=== PATIENT | female | born 1985 | race Caucasian/White ===

== ENCOUNTER 2018-01-13 02:04 | Emergency (ER) | payer BC, OTHER ==
[~2018-01-13] VITALS: Ht 160 cm; Wt 62.0 kg
[~2018-01-13 02:04] MED LIST: BUPR-197 PO; LAMO150 PO; PERC5TAB12 PO; PREN0.01 PO; ZOLP10TA3 PO
[2018-01-13 02:15] VITALS: BP 118/75; PULSE 98; RESP 12; TEMP 98.5; O2SAT 100
--- NOTE | 2018-01-13 02:33 | PD ---
HPI Chief Complaint: Allergic/Adverse Reaction Time Seen by Provider: 02:32 Travel History International Travel<30 days: No Contact w/Intl Traveler<30days: No Traveled to known affect area: No History of Present Illness HPI 32-year-old female with history of bipolar disorder presents emergency department for evaluation under Kulkarni act. Patient states that she took her Ambien and anxiolytic medication prior to bed tonight. She states that she does not recall doing anything out of the normal, however she did send text messages to a boyfriend or ex- about wanting to commit suicide. Patient states she absolutely does not want to hurt herself or anybody else. She tells me she does not recall sending a text messages. Denies illicit drug use. States she does drink alcohol occasionally. She has been taking her medication as prescribed. She has no other symptoms to report. [facility] Past Medical History Anxiety: Yes ?: Not Past Surgical History Section: Yes Gynecologic Surgery: Yes (2 c/section) Social History Alcohol Use: No Tobacco Use: Yes Substance Use: Yes (cocaine & lortab in past) Allergies-Medications (Allergen,Severity, Reaction): Coded Allergies: No Known Allergies (Verified Adverse Reaction, Unknown, 01/13/18) Reported Meds & Prescriptions Reported Meds & Active Scripts Active Reported Ambien (Zolpidem Tartrate) 10 Mg Tab 10 Mg PO HS PRN Lamictal (Lamotrigine) 150 Mg Tab 150 Mg PO BID Wellbutrin SR 12 HR (Bupropion HCl) 100 Mg Tab 100 Mg PO Q12HR Review of Systems Except as stated in HPI: all other systems reviewed are Neg Physical Exam Narrative GENERAL: Well-nourished female patient tearful but in no acute distress. SKIN: Focused skin assessment warm/dry. HEAD: Atraumatic. Normocephalic. EYES: Pupils equal and round. No scleral icterus. No injection or drainage. ENT: No nasal bleeding or discharge. Mucous membranes pink and moist. NECK: Trachea midline. No JVD. CARDIOVASCULAR: Regular rate and rhythm. No murmur appreciated. RESPIRATORY: No accessory muscle use. Clear to auscultation. Breath sounds equal bilaterally. GASTROINTESTINAL: Abdomen soft, non-tender, nondistended. Hepatic and splenic margins not palpable. MUSCULOSKELETAL: No obvious deformities. No clubbing. No cyanosis. No edema. NEUROLOGICAL: Awake and alert. No obvious cranial nerve deficits. Motor grossly within normal limits. Normal speech. Data Data Last Documented VS Vital Signs Date Time Temp Pulse Resp B/P (MAP) Pulse Ox O2 Delivery O2 Flow Rate FiO2 01/13/18 02:44 Room Air 01/13/18 02:15 98.5 98 12 118/75 (89) 100 Orders Orders Complete Blood Count With Diff (01/13/18 02:34) Thyroid Stimulating Hormone (01/13/18 02:34) Basic Metabolic Panel (Bmp) (01/13/18 02:34) Psych Screen (01/13/18 02:34) Drug Screen, Random Urine (01/13/18 02:34) Alcohol (Ethanol) (01/13/18 02:34) Ed Urine Pregnancytest Poc (01/13/18 02:54) Labs Laboratory Tests Test 01/13/18 02:45 01/13/18 02:55 White Blood Count 6.5 TH/MM3 Red Blood Count 4.49 MIL/MM3 Hemoglobin 15.4 GM/DL Hematocrit 42.3 % Mean Corpuscular Volume 94.2 FL Mean Corpuscular Hemoglobin 34.3 PG Mean Corpuscular Hemoglobin Concent 36.4 % Red Cell Distribution Width 12.4 % Platelet Count 206 TH/MM3 Mean Platelet Volume 7.3 FL Neutrophils (%) (Auto) 48.5 % Lymphocytes (%) (Auto) 42.2 % Monocytes (%) (Auto) 6.5 % Eosinophils (%) (Auto) 2.4 % Basophils (%) (Auto) 0.4 % Neutrophils # (Auto) 3.1 TH/MM3 Lymphocytes # (Auto) 2.7 TH/MM3 Monocytes # (Auto) 0.4 TH/MM3 Eosinophils # (Auto) 0.2 TH/MM3 Basophils # (Auto) 0.0 TH/MM3 CBC Comment DIFF FINAL Differential Comment Blood Urea Nitrogen LESS THAN 1 MG/DL Creatinine 0.60 MG/DL Random Glucose 76 MG/DL Calcium Level 9.1 MG/DL Sodium Level 133 MEQ/L Potassium Level 3.5 MEQ/L Chloride Level 95 MEQ/L Carbon Dioxide Level 28.7 MEQ/L Anion Gap 9 MEQ/L Estimat Glomerular Filtration Rate 117 ML/MIN Thyroid Stimulating Hormone 3rd Gen 3.330 uIU/ML Ethyl Alcohol Level 28 MG/DL Urine Opiates Screen NEG Urine Barbiturates Screen NEG Urine Amphetamines Screen NEG Urine Benzodiazepines Screen NEG Urine Cocaine Screen NEG Urine Cannabinoids Screen NEG MDM Medical Decision Making Medical Screen Exam Complete: Yes Emergency Medical Condition: Yes Medical Record Reviewed: Yes Differential Diagnosis Mood disorder versus personality disorder versus adjustment reaction disorder versus medication adverse effect Narrative Course 32-year-old female presents emergency department under Kulkarni act for psychiatric evaluation. Patient denies suicidal homicidal ideations. Laboratory Tests Test 01/13/18 02:45 01/13/18 02:55 White Blood Count 6.5 TH/MM3 Red Blood Count 4.49 MIL/MM3 Hemoglobin 15.4 GM/DL Hematocrit 42.3 % Mean Corpuscular Volume 94.2 FL Mean Corpuscular Hemoglobin 34.3 PG Mean Corpuscular Hemoglobin Concent 36.4 % Red Cell Distribution Width 12.4 % Platelet Count 206 TH/MM3 Mean Platelet Volume 7.3 FL Neutrophils (%) (Auto) 48.5 % Lymphocytes (%) (Auto) 42.2 % Monocytes (%) (Auto) 6.5 % Eosinophils (%) (Auto) 2.4 % Basophils (%) (Auto) 0.4 % Neutrophils # (Auto) 3.1 TH/MM3 Lymphocytes # (Auto) 2.7 TH/MM3 Monocytes # (Auto) 0.4 TH/MM3 Eosinophils # (Auto) 0.2 TH/MM3 Basophils # (Auto) 0.0 TH/MM3 CBC Comment DIFF FINAL Differential Comment Blood Urea Nitrogen LESS THAN 1 MG/DL Creatinine 0.60 MG/DL Random Glucose 76 MG/DL Calcium Level 9.1 MG/DL Sodium Level 133 MEQ/L Potassium Level 3.5 MEQ/L Chloride Level 95 MEQ/L Carbon Dioxide Level 28.7 MEQ/L Anion Gap 9 MEQ/L Estimat Glomerular Filtration Rate 117 ML/MIN Thyroid Stimulating Hormone 3rd Gen 3.330 uIU/ML Ethyl Alcohol Level 28 MG/DL Urine Opiates Screen NEG Urine Barbiturates Screen NEG Urine Amphetamines Screen NEG Urine Benzodiazepines Screen NEG Urine Cocaine Screen NEG Urine Cannabinoids Screen NEG Lab work is reviewed and without acute concern. Patient is medically cleared to undergo psychiatric screening for further evaluation and disposition. Mental health screening discussed with the patient. Psychiatric screen ordered. Diagnosis Primary Impression: Mood disorder Condition: Stable Whit Maurice Jan 13, 2018 02:33
[2018-01-13] MEDS ORDERED: AMBI10TA PO (02:47)
[2018-01-13] MEDS ORDERED: LAMO150 PO (02:47)
[2018-01-13] MEDS ORDERED: BUPR100CR PO (02:47)
[2018-01-13 03:01] LABS: AUTOMATED NEUTROPHIL # 3.1 TH/MM3 (1.8-7.7); BASOPHIL % 0.4 % (0.0-2.0); EOSINOPHIL # 0.2 TH/MM3 (0-0.4); EOSINOPHIL % 2.4 % (0.0-4.0); HEMATOCRIT 42.3 % (35.0-46.0); HEMOGLOBIN 15.4 GM/DL (11.6-15.3); LYMPH % 42.2 % (9.0-44.0); LYMPHOCYTE # 2.7 TH/MM3 (1.0-4.8); MEAN CELL VOLUME 94.2 FL (80.0-100.0); MEAN CORPUSCULAR HEMOGLOBIN 34.3 PG (27.0-34.0); MEAN PLATELET VOLUME 7.3 FL (7.0-11.0); MONO % 6.5 % (0.0-8.0); MONOCYTE # 0.4 TH/MM3 (0-0.9); NEUT % 48.5 % (16.0-70.0); PLATELET COUNT 206 TH/MM3 (150-450); RED BLOOD COUNT 4.49 MIL/MM3 (4.00-5.30); RED CELL DISTRIBUTION WIDTH 12.4 % (11.6-17.2); WHITE BLOOD COUNT 6.5 TH/MM3 (4.0-11.0)
[2018-01-13 03:04] LABS: MEAN CORPUSCULAR HGB CONC 36.4 % (32.0-36.0)
[2018-01-13 03:14] LABS: BICARBONATE 28.7 MEQ/L (21.0-32.0); BLOOD UREA NITROGEN LESS THAN 1 MG/DL (7-18); CALCIUM 9.1 MG/DL (8.5-10.1); CHLORIDE 95 MEQ/L (98-107); GLOMERULAR FILTRATION RATE 117 ML/MIN (>89); GLUCOSE,RANDOM 76 MG/DL (74-106); SODIUM (NA) 133 MEQ/L (136-145)
[2018-01-13 11:05] VITALS: BP 110/63; PULSE 96; RESP 18; TEMP 96.9; O2SAT 99
--- NOTE | 2018-01-13 13:41 | PD ---
History of Present Illness Chief Complaint: Psychiatric Symptoms Time Seen by Provider: 13:15 Travel History International Travel<30 Days: No Contact w/Intl Traveler<30days: No Known affected area: No Legal Status Legal Status: Kulkarni Act Kulkarni Act Signed By: Nicolas Freed Kulkarni Act Comment: 2017 @ 0207 History of Present Illness: History of Present Illness HPI 32-year-old, , female, living with her 2 children with history of bipolar disorder, benzodiazepine and alcohol abuse who presents to emergency department for evaluation under Kulkarni act initiated by law enforcement. The Kulkarni act report alleges that the patient sent concerning text messages to her ex- saying she was going to harm herself. The police also reported to staff that when they arrived to her house there was a loaded weapon in the home. Patient states that she took her Ambien and anxiolytic medication prior to bed tonight. She states that she does not recall doing anything out of the normal, however she did send text messages to a boyfriend or ex- about wanting to commit suicide. Patient states she absolutely does not want to hurt herself or anybody else. She tells me she does not recall sending any text messages. Denies illicit drug use. States she does drink alcohol occasionally. She has been taking her medication as prescribed. She has no other symptoms to report. EMR is refusing reviewed. Patient was last psychiatrically hospitalized in 2012 for treatment of bipolar disorder with suicidal ideation. Current alcohol level is 28 on arrival to ED. no suicidality while under observation here in the ED. Patient is seen. She is alert, oriented, cooperative and engaging. Speech is clear and logical of normal rate and tone. There is no evidence of any hallucinations no delusions and no paranoia. There is no evidence of any gavin or hypomania. Patient does state she feels anxious over possible divorce but states that her and her are working out on all the arrangements and it is amicable. She denies that she has been drinking on a consistent basis. She denies any suicidal or homicidal ideation intent or plan. She states that she would not harm herself because she does not want her children to have to go through such an experience. The remainder of the psychiatric review of system is negative Telephone zion to patient's father at [phone] with her consent. Her father presented no concerns for her safety or the safety or anyone else at this time. He states that she has been compliant with her treatment and has been responsible with such. He also states that she works full-time and has not been having any problems with such. The patient's mother will come to the hospital to pick her up if she is discharge. [facility] Past Medical History Medical History: Denies Significant Hx Anxiety: Yes Tetanus Vaccination: > 5 Years Influenza Vaccination: No ?: Not Past Surgical History Surgical History: No Previous Surgery Section: Yes Gynecologic Surgery: Yes (2 c/section) Psychiatric History Psychiatric History Hx Psychiatric Treatment: BI- POLAR DISORDER, PSA., Currently under the care of Dr. Mary Méndez. She also sees Colton Ortiz for therapy. No history of suicide attempts. Reports medication compliance History of Inpatient Treatment: Yes Guns or firearms in home: No Social History female. Lives with and HER-2 children. 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 Hx Alcohol Use: No Hx Tobacco Use: Yes Hx Substance Use: Yes (cocaine & lortab in past) Substance Use Type: Alcohol, Prescription Medications, Benzos (Valium,Xanax) Hx of Substance Use Treatment: No Allergies-Medications (Allergen,Severity, Reaction): Coded Allergies: No Known Allergies (Verified Adverse Reaction, Unknown, 01/13/18) Reported Meds & Prescriptions Reported Meds & Active Scripts Active Reported Ambien (Zolpidem Tartrate) 10 Mg Tab 10 Mg PO HS PRN Lamictal (Lamotrigine) 150 Mg Tab 150 Mg PO BID Wellbutrin SR 12 HR (Bupropion HCl) 100 Mg Tab 100 Mg PO Q12HR Review of Systems Psychiatric: COMPLAINS OF: Anxiety Except as stated in HPI: all other systems reviewed are Neg Mental Status Examination Appearance: Appropriate (Dressed in [facility]) Consciousness: Alert Orientation: x4 Motor Activity: Normal gait Speech: Unremarkable Language: Adequate Fund of Knowledge: Adequate Attention and Concentration: Adequate Memory: Unremarkable Mood: Appropriate, Other (Tearful at times) Affect: Appropriate Thought Process & Associations: Intact, Logical, Goal directed Thought Content: Appropriate Hallucination Type: None Delusion Type: None Suicidal Ideation: No Suicidal Plan: No Suicidal Intention: No Homicidal Ideation: No Homicidal Plan: No Homicidal Intention: No Insight: Adequate Judgment: Adequate MDM Medical Decision Making Medical Record Reviewed: Yes Assessment/Plan 32-year-old, , female, living with her 2 children with history of bipolar disorder, benzodiazepine and alcohol abuse who presents to emergency department for evaluation under Kulkarni act initiated by law enforcement. The Kulkarni act report alleges that the patient sent concerning text messages to her ex- saying she was going to harm herself. The police also reported to staff that when they arrived to her house there was a loaded weapon in the home. Patient states that she took her Ambien and Klonopin prior to bed tonight. Patient is have indeed reported retrograde amnesia after the use of Ambien. She admits that in the past she has engaged in behaviors such as doing laundry after she takes her medication and later has no recollection. Patient states she absolutely does not want to hurt herself or anybody else. She tells me she does not recall sending any text messages. Patient continues to deny any suicidal or homicidal ideation intent or plan . I have advised the patient consult with Dr. Maya Méndez regarding continued use of Ambien. She will follow up with Dr. Méndez. At this time the patient does not meet criteria for Kulkarni act and collateral information has been obtained with no concerns for her safety if she is discharged as per her family. I spoke with her mother prior to the patient being discharged and the mother is removing the weapon from the home. The Kulkarni act as lifted. patient is psychiatrically clear for discharge from the ED Orders Orders Complete Blood Count With Diff (01/13/18 02:34) Thyroid Stimulating Hormone (01/13/18 02:34) Basic Metabolic Panel (Bmp) (01/13/18 02:34) Psych Screen (01/13/18 02:34) Drug Screen, Random Urine (01/13/18 02:34) Alcohol (Ethanol) (01/13/18 02:34) Ed Urine Pregnancytest Poc (01/13/18 02:54) Diet Regular Basic (01/13/18 Lunch) Results Vital Signs Date Time Temp Pulse Resp B/P (MAP) Pulse Ox O2 Delivery O2 Flow Rate FiO2 01/13/18 11:05 96.9 96 18 110/63 (79) 99 Room Air 01/13/18 08:33 18 01/13/18 02:44 Room Air 01/13/18 02:15 98.5 98 12 118/75 (89) 100 Laboratory Tests Test 01/13/18 02:45 01/13/18 02:55 White Blood Count 6.5 Red Blood Count 4.49 Hemoglobin 15.4 Hematocrit 42.3 Mean Corpuscular Volume 94.2 Mean Corpuscular Hemoglobin 34.3 Mean Corpuscular Hemoglobin Concent 36.4 Red Cell Distribution Width 12.4 Platelet Count 206 Mean Platelet Volume 7.3 Neutrophils (%) (Auto) 48.5 Lymphocytes (%) (Auto) 42.2 Monocytes (%) (Auto) 6.5 Eosinophils (%) (Auto) 2.4 Basophils (%) (Auto) 0.4 Neutrophils # (Auto) 3.1 Lymphocytes # (Auto) 2.7 Monocytes # (Auto) 0.4 Eosinophils # (Auto) 0.2 Basophils # (Auto) 0.0 CBC Comment DIFF FINAL Differential Comment Blood Urea Nitrogen LESS THAN 1 Creatinine 0.60 Random Glucose 76 Calcium Level 9.1 Sodium Level 133 Potassium Level 3.5 Chloride Level 95 Carbon Dioxide Level 28.7 Anion Gap 9 Estimat Glomerular Filtration Rate 117 Thyroid Stimulating Hormone 3rd Gen 3.330 Ethyl Alcohol Level 28 Urine Opiates Screen NEG Urine Barbiturates Screen NEG Urine Amphetamines Screen NEG Urine Benzodiazepines Screen NEG Urine Cocaine Screen NEG Urine Cannabinoids Screen NEG Diagnosis Primary Impression: Mood disorder Additional Impression: Bipolar disorder Psychiatrically Cleared: Yes Med/ Other Pt Specific Info: No Change to Meds Disposition: 01 DISCHARGE HOME Condition: Stable Problem Qualifiers Additional Impression: Bipolar disorder Qualified Codes: F31.31 - Bipolar disorder, current episode depressed, mild Dawson,Jacquelin Wadea [facility] Jan 13, 2018 13:41
--- NOTE | 2018-01-13 14:15 | PD ---
Physical Exam Time Seen by Provider: 14:14 ANGUS Crow has evaluated the patient, lifted the Kulkarni act and cleared the patient for discharge. Data Data Last Documented VS Vital Signs Date Time Temp Pulse Resp B/P (MAP) Pulse Ox O2 Delivery O2 Flow Rate FiO2 01/13/18 11:05 96.9 96 18 110/63 (79) 99 Room Air Orders Orders Complete Blood Count With Diff (01/13/18 02:34) Thyroid Stimulating Hormone (01/13/18 02:34) Basic Metabolic Panel (Bmp) (01/13/18 02:34) Psych Screen (01/13/18 02:34) Drug Screen, Random Urine (01/13/18 02:34) Alcohol (Ethanol) (01/13/18 02:34) Ed Urine Pregnancytest Poc (01/13/18 02:54) Diet Regular Basic (01/13/18 Lunch) Labs Laboratory Tests Test 01/13/18 02:45 01/13/18 02:55 White Blood Count 6.5 TH/MM3 Red Blood Count 4.49 MIL/MM3 Hemoglobin 15.4 GM/DL Hematocrit 42.3 % Mean Corpuscular Volume 94.2 FL Mean Corpuscular Hemoglobin 34.3 PG Mean Corpuscular Hemoglobin Concent 36.4 % Red Cell Distribution Width 12.4 % Platelet Count 206 TH/MM3 Mean Platelet Volume 7.3 FL Neutrophils (%) (Auto) 48.5 % Lymphocytes (%) (Auto) 42.2 % Monocytes (%) (Auto) 6.5 % Eosinophils (%) (Auto) 2.4 % Basophils (%) (Auto) 0.4 % Neutrophils # (Auto) 3.1 TH/MM3 Lymphocytes # (Auto) 2.7 TH/MM3 Monocytes # (Auto) 0.4 TH/MM3 Eosinophils # (Auto) 0.2 TH/MM3 Basophils # (Auto) 0.0 TH/MM3 CBC Comment DIFF FINAL Differential Comment Blood Urea Nitrogen LESS THAN 1 MG/DL Creatinine 0.60 MG/DL Random Glucose 76 MG/DL Calcium Level 9.1 MG/DL Sodium Level 133 MEQ/L Potassium Level 3.5 MEQ/L Chloride Level 95 MEQ/L Carbon Dioxide Level 28.7 MEQ/L Anion Gap 9 MEQ/L Estimat Glomerular Filtration Rate 117 ML/MIN Thyroid Stimulating Hormone 3rd Gen 3.330 uIU/ML Ethyl Alcohol Level 28 MG/DL Urine Opiates Screen NEG Urine Barbiturates Screen NEG Urine Amphetamines Screen NEG Urine Benzodiazepines Screen NEG Urine Cocaine Screen NEG Urine Cannabinoids Screen NEG MDM Supervised Visit with [facility]: No Narrative Course ANGUS Roper has evaluated the patient, lifted the Kulkarni act and cleared the patient for discharge. Patient contracts safety. Denies suicidal or homicidal ideations. Patient will be provided community resource packet to [facility] for follow-up. Has friends and family for support. Patient was medically cleared by alternate provider prior to psych screening. Patient has been evaluated by psychiatry and and is now cleared for discharge. Diagnosis Primary Impression: Mood disorder Referrals: [facility] (Out patient) [facility] Primary Care Physician Psychiatrist [facility] Patient Instructions: General Instructions, Mood Disorders (ED) Additional Instruction: Contract safety to your self and others Follow-up with psychiatry Follow-up with primary care provider Follow-up with Gurmeet Tsang Return to the emergency department immediately with worsening of symptoms Med/Other Pt SpecificInfo: No Change to Meds, No Meds Exist/No RX given Disposition: 01 DISCHARGE HOME Condition: Stable Janeth Benitez Jan 13, 2018 14:15
== END 2018-01-13 15:10 | disposition home or self-care (01) ==
LOC: NEPD 02:04 → NEPJ 15:10
DX: F31.31 Bipolar disorder, current episode depressed, mild (principal); Z72.0 Tobacco use; Z79.899 Other long term (current) drug therapy
CPT/HCPCS: 80048; 80307; 84443; 84703; 85025; 99283